=== PATIENT | male | born 1960 | race Asian ===

== ENCOUNTER 2017-06-13 00:23 | Emergency (ER) | payer MEDICAID ==
[~2017-06-13] VITALS: Ht 170.2 cm; Wt 81.6 kg
[2017-06-13 00:23] VITALS: BP 112/70
[2017-06-13] MEDS ORDERED: ONDANSETRON ODT 4 MG TAB PO ONE ×2 (00:37→00:45)
[2017-06-13 01:16] LABS: Basophils # (auto) 0 uL; CONDITION Y; Eosinophils # (auto) 0 uL; Hematocrit 44.6 % (41.0-53.0); Hemoglobin 15.5 g/dL (13.5-17.5); Lymphocytes # (auto) 1.1 uL; Lymphocytes % (auto) 7.2 % (10.0-50.0); Mean Corpuscular Hemoglobin 32.1 pg (28.0-32.0); Mean Corpuscular Hgb Conc. 34.7 g/dL (32.0-36.0); Mean Corpuscular Volume 92.7 fL (80.0-100.0); Mean Platelet Volume 9.3 fL (6.9-10.8); Monocytes # (auto) 0.6 uL; Monocytes % (auto) 3.8 % (0.0-12.0); Neutrophils # (auto) 14.1 uL; Platelet Count (auto) 182 10^3/uL (140-450); White Blood Cell 15.8 10^3/uL (4.4-10.8)
[2017-06-13 01:31] LABS: Albumin 3.9 g/dL (3.4-5.0); Anion Gap 9 (5-15); Aspartate Aminotransferase 26 U/L (15-37); BUN/Creatinine Ratio 15.7; Blood Urea Nitrogen 18 mg/dL (7-18); Calcium 8.3 mg/dL (8.5-10.1); Carbon Dioxide 28 mmol/L (21-32); Chloride 105 mmol/L (98-107); GFR African American 85 mL/min; GFR Non-African American 70 mL/min; Glucose 183 mg/dL (74-106); Partial Thromboplastin Time 22.9 sec (22.64-33.71); Prothrombin Time 10.9 sec (9.37-12.3); Sodium 142 mmol/L (136-145)
[2017-06-13 01:35] LABS: Alkaline Phosphatase 99 U/L (45-117); Bilirubin, Total 1.2 mg/dL (0.2-1.0); Total Protein 7.5 g/dL (6.4-8.2)
[2017-06-13 01:41] LABS: Amylase 136 U/L (25-115)
== END 2017-06-13 04:55 | disposition left against medical advice (07) ==
LOC: ER 00:25
DX: R11.2 Nausea with vomiting, unspecified (principal); R42 Dizziness and giddiness; Z53.21 Procedure and treatment not carried out due to patient leaving prior to being seen by health care provider
CPT/HCPCS: 36415; 70450; 71010; 74176; 80053; 80307; 82150; 83690; 84484; 85025; 85610; 85730; 93005; Q0162